=== PATIENT | female | born 1980 | race Caucasian/White ===

== ENCOUNTER 2024-01-07 11:02 | Observation (INO) ==
[2024-01-07 11:16] VITALS: BMI 37.4
[2024-01-07 11:43] LABS: EOSINOPHILS % (AUTO) 0.1 % (0.9-2.9); NEUTROPHILS # (AUTO) 8.8 x10^3/uL (2.2-4.8)
[2024-01-07 11:46] LABS: BASOPHILS # (AUTO) 0.2 X10^3/uL (0.0-0.1); BASOPHILS % (AUTO) 2.2 % (0.2-1.0); LYMPHOCYTES # (AUTO) 0.7 X10^3/uL (1.3-2.9); LYMPHOCYTES % (AUTO) 7.3 % (21.0-51.0); MEAN CORPUSCULAR HEMOGLOBIN 17.2 pg (27.0-34.0); MEAN CORPUSCULAR HGB CONC 28.6 g/dL (33.0-35.0); MEAN PLATELET VOLUME 8.7 fL (7.4-11.0); MONOCYTES # (AUTO) 0.4 x10^3/uL (0.3-0.8); MONOCYTES % (AUTO) 3.8 % (0.0-13.0); NEUTROPHILS % (AUTO) 86.6 % (42.0-75.0); PLATELET COUNT 289 X10^3/uL (150.0-450.0); RED BLOOD COUNT 1.95 X10^6/uL (3.5-5.4); WHITE BLOOD COUNT 10.2 X10^3/uL (3.6-10.0)
--- NOTE | 2024-01-07 11:49 | DR.VAGB ---
HPI Time Seen Time Seen by Provider: 01/07/24 11:48 PCP Primary Care Physician: DR. DEGROOT Complaint Self Treatment fo Chief Complaint: control pills/metformin Source History Provided: Patient Mode of Arrival Mode of Arrival: Wheelchair Timing Onset of Chief Complaint: 12/08/23 PMH PMH Past Medical History: Yes Past Medical History: Hypertension Past Medical History Comment: ovarian cysts Past Surgical History: Yes Surgical History: Past Surgical History Comment: x5 Family History History of Family Medical Conditions: Yes Family Medical History: Diabetes Mellitus Social History Does patient currently use any type of tobacco product: No Have you used tobacco products in the last 12 months: No Type of Tobacco Use: None Does any household member use tobacco: No Alcohol Use: None Do you use any recreational Drugs:: No Lives With: Spouse Lives Where: Home Travel Risk Coronavirus risk:travel/contact w/high risk person: No Has patient experienced Coronavirus symptoms: No Infectious screening Have you traveled outside the country in the last 6 months?: No Isolation: Standard PE Vital Signs Vitals: Vital Signs Temperature 98.0 F Pulse Rate 100 Pulse Rate 100 Respiratory Rate 20 Respiratory Rate 20 Blood Pressure 167/70 O2 Sat by Pulse Oximetry 99 O2 Sat by Pulse Oximetry 113 ROR Labs Reviewed 01/07/24 11:30 01/07/24 11:30 Laboratory: WBC 10.2 X10^3/uL (3.6-10.0) H 01/07/24 11:30 RBC 1.95 X10^6/uL (3.5-5.4) L 01/07/24 11:30 Hgb 3.3 g/dL (12.0-16.0) L* 01/07/24 11:30 Hct 11.7 % (36.0-47.0) L* 01/07/24 11:30 MCV 60.0 fL (80.0-100.0) L 01/07/24 11:30 MCH 17.2 pg (27.0-34.0) L 01/07/24 11:30 MCHC 28.6 g/dL (33.0-35.0) L 01/07/24 11:30 RDW 20.0 % (11.6-16.5) H 01/07/24 11:30 Plt Count 289 X10^3/uL (150.0-450.0) 01/07/24 11:30 Plt Count Comment Adequate (ADEQUATE) 01/07/24 11: MPV 8.7 fL (7.4-11.0) 01/07/24 11:30 Neut % (Auto) 86.6 % (42.0-75.0) H 01/07/24 11:30 Lymph % (Auto) 7.3 % (21.0-51.0) L 01/07/24 11:30 [place] % (Auto) 3.8 % (0.0-13.0) 01/07/24 11:30 Eos % (Auto) 0.1 % (0.9-2.9) L 01/07/24 11:30 Baso % (Auto) 2.2 % (0.2-1.0) H 01/07/24 11:30 Neut # (Auto) 8.8 x10^3/uL (2.2-4.8) H 01/07/24 11:30 Lymph # (Auto) 0.7 X10^3/uL (1.3-2.9) L 01/07/24 11:30 [place] # (Auto) 0.4 x10^3/uL (0.3-0.8) 01/07/24 11:30 Eos # (Auto) 0.0 x10^3/uL (0.0-0.2) 01/07/24 11:30 Baso # (Auto) 0.2 X10^3/uL (0.0-0.1) H 01/07/24 11:30 Absolute Nucleated RBC 0.5 /100WBC 01/07/24 11:30 Plt Morphology Comment Normal (NORMAL) 01/07/24 11:30 RBC Morphology Abnormal (NORMAL) A 01/07/24 11:30 Hypochromasia 3+ A 01/07/24 11:30 Anisocytosis 1+ A 01/07/24 11: Microcytosis 2+ A 01/07/24 11:30 Tear Drop Cells Present 01/07/24 11:30 Absolute Retic 0.1100 10^6/uL 01/07/24 11:30 Percent Retic 6.18 % (0.8-2.2) H 01/07/24 11:30 Sodium 136 mmol/L (136-145) 01/07/24 11:30 Corrected Sodium 137 mmol/L (136-145) 01/07/24 11:30 Potassium 4.2 mmol/L (3.5-5.1) 01/07/24 11:30 Chloride 104 mmol/L (98-107) 01/07/24 11:30 Carbon Dioxide 27.9 mmol/L (21-32) 01/07/24 11:30 BUN 11 mg/dL (7-18) 01/07/24 11:30 Creatinine 0.62 mg/dL (0.55-1.02) 01/07/24 11:30 Est GFR (MDRD) Af Amer > 60 (>60) 01/07/24 11:30 Est GFR (MDRD) Non-Af > 60 (>60) 01/07/24 11:30 Glucose 126 mg/dL (65-99) H 01/07/24 11:30 Calcium 8.1 mg/dL (8.5-10.1) L 01/07/24 11:30 Corrected Calcium 9.1 mg/dL (8.5-10.1) 01/07/24 11:30 Iron 10 ug/dL (50-175) L 01/07/24 11:30 TIBC 559 ug/dL (250-450) H 01/07/24 11:30 Transferrin 414 mg/dL (202-364) H 01/07/24 11:30 Ferritin 1 ng/mL (8-252) L 01/07/24 11:30 Total Bilirubin 0.30 mg/dL (0.2-1.0) 01/07/24 11:30 AST 14 Units/L (15-37) L 01/07/24 11:30 ALT 9 Units/L (12-78) L 01/07/24 11:30 Alkaline Phosphatase 79 Units/L (46-116) 01/07/24 11:30 Total Protein 6.8 g/dL (6.4-8.2) 01/07/24 11:30 Albumin 2.7 g/dL (3.4-5.0) L 01/07/24 11:30 Globulin 4.1 g/dL (2.5-4.5) 01/07/24 11:30 Albumin/Globulin Ratio 0.7 Ratio (1.1-2.1) L 01/07/24 11:30 Vitamin B12 275 pg/mL (193-986) 01/07/24 11:30 Folate 18.3 ng/mL (>8.6) 01/07/24 11:30 HCG, Qual Negative <10 mIU/mL 01/07/24 11:30 Blood Type O POSITIVE 01/07/24 11:36 Antibody Screen Negative 01/07/24 11:36 Crossmatch See Detail 01/07/24 11:36 Opioid Opioid Risk Tool Age (Anselmo box if 16-45): Yes History of Preadolescent Sexual Abuse: No Total: 1 Total Score Risk Category: Low Risk Copyright: Parveen CORRAL predicting aberrant behaviors Discharge Plan Diagnosis Discharge Problem: Anemia Discharge Plan Patient Disposition: 01 HOME, SELF-CARE Condition: Stable Health Concerns: Post Hospitalization: new medications and changes needed to prevent readmission or further decline. Pt educated and given instructions on all concerns. Plan of Treatment: Continue with present treatment and follow up plan. Pt is to keep follow up appointment as instructed and take medications as ordered. Orders to Discharge Patient Discharge Orders: Transfer (Routine); Ordered 01/07/24 Ordered By: CASSANDRA CARTER Follow ups/Referrals Follow ups/Referrals: NFD,None [Primary Care Provider] - 3 days Instructions Stand Alone Forms: Post Hospital Follow Up Care
[2024-01-07 11:50] LABS: HEMATOCRIT 11.7 % (36.0-47.0); HEMOGLOBIN 3.3 g/dL (12.0-16.0)
[2024-01-07 11:56] LABS: ALANINE AMINOTRANSFERASE 9 Units/L (12-78); ALBUMIN 2.7 g/dL (3.4-5.0); ALKALINE PHOSPHATASE 79 Units/L (46-116); ASPARTATE AMINO TRANSFERASE 14 Units/L (15-37); BLOOD UREA NITROGEN 11 mg/dL (7-18); CALCIUM 8.1 mg/dL (8.5-10.1); CARBON DIOXIDE 27.9 mmol/L (21-32); CHLORIDE 104 mmol/L (98-107); COR CA(FOR HYPOALB) 9.1 mg/dL (8.5-10.1); COR NA(FOR HYPERGLY) 137 mmol/L (136-145); CREATININE 0.62 mg/dL (0.55-1.02); GLUCOSE 126 mg/dL (65-99); POTASSIUM 4.2 mmol/L (3.5-5.1); SODIUM 136 mmol/L (136-145); TOTAL PROTEIN 6.8 g/dL (6.4-8.2); eGFR NON BLACK RACES > 60 (>60)
[2024-01-07 12:09] LABS: ANISOCYTOSIS 1+; HYPOCHROMASIA 3+; MICROCYTOSIS 2+; PLATELET MORPHOLOGY COMMENT NORMAL (NORMAL)
[2024-01-07 12:10] LABS: TEAR DROP CELLS PRESENT
[2024-01-07 13:43] LABS: RETICULOCYTE % 6.18 % (0.8-2.2)
[2024-01-07 13:46] LABS: SERUM PREGNANCY TEST, QUAL NEGATIVE <10 mIU/mL
[2024-01-07] MEDS: NS 250 ML IV 250 ML IV ONE (18:16)
[2024-01-07] MEDS: NS 1,000 ML IV 1,000 ML IV SCH (21:47)
[2024-01-07 22:19] LABS: BILIRUBIN,URINE NEGATIVE (NEGATIVE); BLOOD/HEMOGLOBIN,URINE 5+ (NEGATIVE); GLUCOSE, URINE NEGATIVE (NEGATIVE); KETONES,URINE NEGATIVE (NEGATIVE); LEUKOCYTE ESTERASE ,URINE 3+ (NEGATIVE); NITRITES,URINE POSITIVE (NEGATIVE); PROTEIN,URINE 3+ (NEGATIVE); UROBILINOGEN,URINE NORMAL (NORMAL)
[2024-01-07 22:30] LABS: HEMOGLOBIN 5.1 g/dL (12.0-16.0)
[2024-01-07 22:31] LABS: HEMATOCRIT 16.2 % (36.0-47.0)
[2024-01-07 22:37] LABS: APPEARANCE,URINE CLOUDY (CLEAR); BACTERIA,URINE 1+ /HPF (NEGATIVE); COLOR,URINE AMBER (YELLOW); RBC,URINE TNTC /HPF (0-3); SQUAMOUS EPITHELIAL CELL,UR RARE /HPF (NEGATIVE)
[2024-01-08 04:22] LABS: HEMATOCRIT 18.4 % (36.0-47.0); HEMOGLOBIN 5.8 g/dL (12.0-16.0)
[2024-01-08 09:01] LABS: WHITE BLOOD COUNT 6.1 X10^3/uL (3.6-10.0)
[2024-01-08 09:04] LABS: BASOPHILS # (AUTO) 0.1 X10^3/uL (0.0-0.1); BASOPHILS % (AUTO) 1.6 % (0.2-1.0); EOSINOPHILS % (AUTO) 0.7 % (0.9-2.9); LYMPHOCYTES # (AUTO) 0.8 X10^3/uL (1.3-2.9); LYMPHOCYTES % (AUTO) 12.8 % (21.0-51.0); MEAN CORPUSCULAR HEMOGLOBIN 24.2 pg (27.0-34.0); MEAN CORPUSCULAR HGB CONC 31.9 g/dL (33.0-35.0); MEAN CORPUSCULAR VOLUME 75.9 fL (80.0-100.0); MEAN PLATELET VOLUME 8.6 fL (7.4-11.0); MONOCYTES # (AUTO) 0.4 x10^3/uL (0.3-0.8); MONOCYTES % (AUTO) 6.7 % (0.0-13.0); NEUTROPHILS # (AUTO) 4.8 x10^3/uL (2.2-4.8); NEUTROPHILS % (AUTO) 78.2 % (42.0-75.0); PLATELET COUNT 177 X10^3/uL (150.0-450.0); RED CELL DISTRIBUTION WIDTH 27.9 % (11.6-16.5)
[2024-01-08 09:10] LABS: ALANINE AMINOTRANSFERASE 8 Units/L (12-78); ALBUMIN 2.4 g/dL (3.4-5.0); ALKALINE PHOSPHATASE 70 Units/L (46-116); ASPARTATE AMINO TRANSFERASE 14 Units/L (15-37); BLOOD UREA NITROGEN 9 mg/dL (7-18); CALCIUM 7.6 mg/dL (8.5-10.1); CARBON DIOXIDE 28.3 mmol/L (21-32); CHLORIDE 103 mmol/L (98-107); COR CA(FOR HYPOALB) 8.9 mg/dL (8.5-10.1); COR NA(FOR HYPERGLY) 138 mmol/L (136-145); CREATININE 0.67 mg/dL (0.55-1.02); GLUCOSE 125 mg/dL (65-99); POTASSIUM 3.4 mmol/L (3.5-5.1); SODIUM 137 mmol/L (136-145); TOTAL PROTEIN 6.1 g/dL (6.4-8.2); eGFR NON BLACK RACES > 60 (>60)
[2024-01-08 09:32] LABS: PLATELET MORPHOLOGY COMMENT NORMAL (NORMAL)
[2024-01-08 09:33] LABS: ANISOCYTOSIS 3+; HYPOCHROMASIA SLIGHT; MICROCYTOSIS SLIGHT
[2024-01-08] MEDS: VITAMIN B-12 INJ IM ONE (12:14)
[2024-01-08 14:02] LABS: HEMATOCRIT 21.7 % (36.0-47.0); HEMOGLOBIN 7.1 g/dL (12.0-16.0)
[2024-01-08] MEDS: PROVERA PO SCH (14:10)
[2024-01-08] MEDS: NS IV NR (16:24)
[2024-01-08] MEDS: INJECTAFER IV NR (16:24)
--- NOTE | 2024-01-08 16:28 | DR.H&P ---
H&P History & Physical for Day of: H&P Date: 01/08/24 Chief Complaint Chief Complaint: Heavier than normal menstrual cycle with feeling weak and lightheaded. History of Present Illness History of Present Illness: This is a pleasant 43-year-old white female who presented to [facility] department after feeling weak and lightheaded and having a very heavy menstrual cycle recently that is for heavier than normal she states. She has had this before about 10 years ago and had to receive blood transfusions. Workup in the emergency department revealed that she had a hemoglobin of 3.3 therefore we decided to go ahead and admit her and transfused 4 units of packed red blood cells. After the fourth pack of red blood cells transfusion her hemoglobin has come up to 7.1. Throughout the day her menses has gotten heavier so we put in a consultation with [employer], Dr. Bills who has given some orders and plans on seeing the patient later on today or tomorrow. The patient requested to see Dr. Bills and wants to use her as her [employer] in the future. Past Medical History Past Medical History: Hypertension Additional Medical History: TTP Past Surgical History Surgical History: Family History Family Medical History: Hypertension Social History Does patient currently use any type of tobacco product: No Have you used tobacco products in the last 12 months: No Type of Tobacco Use: None Does any household member use tobacco: No Alcohol Use: None Drug Use: None Medications Home Medications: Home Medications Medication Instructions Recorded Confirmed Type metformin 500 mg tablet 500 mg PO DAILY 01/07/24 01/07/24 History norgestimate 0.25 mg-ethinyl 1 tab PO DAILY 01/07/24 01/07/24 History estradiol 35 mcg tablet (Sprintec (28)) Allergies Allergies Allergy/AdvReac Type Severity Reaction Status Date / Time codeine AdvReac Verified 01/07/24 11:17 Labs 01/08/24 13:49 01/08/24 08:30 Labs: 01/07/24 22:10 Urine,Clean Catch Urine Culture - Preliminary Laboratory WBC 6.1 X10^3/uL (3.6-10.0) 01/08/24 08:30 RBC 2.90 X10^6/uL (3.5-5.4) L 01/08/24 08:30 Hgb 7.1 g/dL (12.0-16.0) L 01/08/24 13:49 Hct 21.7 % (36.0-47.0) L 01/08/24 13:49 MCV 75.9 fL (80.0-100.0) L 01/08/24 08:30 MCH 24.2 pg (27.0-34.0) L 01/08/24 08:30 MCHC 31.9 g/dL (33.0-35.0) L 01/08/24 08:30 RDW 27.9 % (11.6-16.5) H 01/08/24 08:30 Plt Count 177 X10^3/uL (150.0-450.0) 01/08/24 08:30 Plt Count Comment Adequate (ADEQUATE) 01/08/24 08:30 MPV 8.6 fL (7.4-11.0) 01/08/24 08:30 Neut % (Auto) 78.2 % (42.0-75.0) H 01/08/24 08:30 Lymph % (Auto) 12.8 % (21.0-51.0) L 01/08/24 08:30 [place] % (Auto) 6.7 % (0.0-13.0) 01/08/24 08:30 Eos % (Auto) 0.7 % (0.9-2.9) L 01/08/24 08:30 Baso % (Auto) 1.6 % (0.2-1.0) H 01/08/24 08:30 Neut # (Auto) 4.8 x10^3/uL (2.2-4.8) 01/08/24 08:30 Lymph # (Auto) 0.8 X10^3/uL (1.3-2.9) L 01/08/24 08:30 Angelina # (Auto) 0.4 x10^3/uL (0.3-0.8) 01/08/24 08:30 Eos # (Auto) 0.0 x10^3/uL (0.0-0.2) 01/08/24 08:30 Baso # (Auto) 0.1 X10^3/uL (0.0-0.1) 01/08/24 08:30 Absolute Nucleated RBC 0.6 /100WBC 01/08/24 08:30 Plt Morphology Comment Normal (NORMAL) 01/08/24 08:30 RBC Morphology Abnormal (NORMAL) A 01/08/24 08:30 Hypochromasia Slight A 01/08/24 08:30 Anisocytosis 3+ A 01/08/24 08:30 Microcytosis Slight A 01/08/24 08:30 Tear Drop Cells Present 01/07/24 11:30 Absolute Retic 0.1100 10^6/uL 01/07/24 11:30 Percent Retic 6.18 % (0.8-2.2) H 01/07/24 11:30 Sodium 137 mmol/L (136-145) 01/08/24 08:30 Corrected Sodium 138 mmol/L (136-145) 01/08/24 08:30 Potassium 3.4 mmol/L (3.5-5.1) L 01/08/24 08:30 Chloride 103 mmol/L (98-107) 01/08/24 08:30 Carbon Dioxide 28.3 mmol/L (21-32) 01/08/24 08:30 BUN 9 mg/dL (7-18) 01/08/24 08:30 Creatinine 0.67 mg/dL (0.55-1.02) 01/08/24 08:30 Est GFR (MDRD) Af Amer > 60 (>60) 01/08/24 08:30 Est GFR (MDRD) Non-Af > 60 (>60) 01/08/24 08:30 Glucose 125 mg/dL (65-99) H 01/08/24 08:30 Calcium 7.6 mg/dL (8.5-10.1) L 01/08/24 08:30 Corrected Calcium 8.9 mg/dL (8.5-10.1) 01/08/24 08:30 Magnesium 1.9 mg/dL (2.0-2.9) L 01/08/24 08:30 Iron 10 ug/dL (50-175) L 01/07/24 11:30 TIBC 559 ug/dL (250-450) H 01/07/24 11:30 Transferrin 414 mg/dL (202-364) H 01/07/24 11:30 Ferritin 1 ng/mL (8-252) L 01/07/24 11:30 Total Bilirubin 0.60 mg/dL (0.2-1.0) 01/08/24 08:30 AST 14 Units/L (15-37) L 01/08/24 08:30 ALT 8 Units/L (12-78) L 01/08/24 08:30 Alkaline Phosphatase 70 Units/L (46-116) 01/08/24 08:30 Total Protein 6.1 g/dL (6.4-8.2) L 01/08/24 08:30 Albumin 2.4 g/dL (3.4-5.0) L 01/08/24 08:30 Globulin 3.7 g/dL (2.5-4.5) 01/08/24 08:30 Albumin/Globulin Ratio 0.6 Ratio (1.1-2.1) L 01/08/24 08:30 Vitamin B12 275 pg/mL (193-986) 01/07/24 11:30 Folate 18.3 ng/mL (>8.6) 01/07/24 11:30 HCG, Qual Negative <10 mIU/mL 01/07/24 11:30 Specimen Type Clean catch urine 01/07/24 22:10 Urine Color Kathi (YELLOW) 01/07/24 22:10 Urine Appearance Cloudy (CLEAR) 01/07/24 22:10 Urine pH 6.0 (5.0 - 8.0) 01/07/24 22:10 Ur Specific [place] 1.025 (1.000-1.030) 01/07/24 22:10 Urine Protein 3+ (NEGATIVE) 01/07/24 22:10 Urine Glucose (UA) Negative (NEGATIVE) 01/07/24 22:10 Urine Ketones Negative (NEGATIVE) 01/07/24 22:10 Urine Blood 5+ (NEGATIVE) 01/07/24 22:10 Urine Nitrite Positive (NEGATIVE) 01/07/24 22:10 Urine Bilirubin Negative (NEGATIVE) 01/07/24 22:10 Urine Urobilinogen Normal (NORMAL) 01/07/24 22:10 Ur Leukocyte Esterase 3+ (NEGATIVE) 01/07/24 22:10 Urine RBC Tntc /HPF (0-3) A 01/07/24 22:10 Urine WBC Tntc /HPF (0-5) A 01/07/24 22:10 Ur Squamous Epith Cells Rare /HPF (NEGATIVE) 01/07/24 22:10 Amorphous Sediment 1+ /HPF (NEGATIVE) 01/07/24 22:10 Urine Bacteria 1+ /HPF (NEGATIVE) 01/07/24 22:10 Urine Mucus Few /HPF (NEGATIVE) 01/07/24 22:10 Ur Culture Indicated? Yes/culture set up 01/07/24 22:10 Blood Type O POSITIVE 01/07/24 11:36 Antibody Screen Negative 01/07/24 11:36 Crossmatch See Detail 01/07/24 11:36 Review of Systems Constitutional: Weakness and Malaise Eyes: No Symptoms Reported ENT: No Symptoms Reported Respiratory: Shortness of Breath and SOB with Excertion; denies Cough, Hemoptysis, Pleuritic Pain or Sputum Cardiovascular: No Symptoms Reported Gastrointestinal: No Symptoms Reported Genitourinary: Retention; denies Frequency Musculoskeletal: No Symptoms Reported Skin: No Symptoms Reported Neurological: No Symptoms Reported Physical Exam Vital Signs: Vital Signs Temperature 97.6 F Temperature 97.3 F Pulse Rate [Radial] 83 Pulse Rate [Radial] 77 Respiratory Rate 19 Respiratory Rate 18 Blood Pressure [Right Arm] 127/58 Blood Pressure [Right Arm] 143/63 O2 Sat by Pulse Oximetry 100 O2 Sat by Pulse Oximetry 100 Oriented: Normal, Time, Person and Place Eyes: Normal Ear: Normal Nose: Normal Throat: Normal Respiratory: Clear Throughout Cardiovascular: Normal : Bleeding; negative Discharge Auscultation: Bowel Sounds: Normal Palpation: Normal Tenderness: Normal Skin: Normal Musculoskeletal: Normal Psychiatric: Normal Mood Description: Calm Affect: Normal Speech Pattern: Clear and Appropriate Assessment/Plan (1) Anemia: Status: Acute Plan: Continue to monitor hemoglobin. Check an H&H mid afternoon today. Patient is status posttransfusion of 4 units packed red blood cells. (2) Menorrhagia: Status: Acute Plan: Consult [employer], Dr. Bills for further evaluation and treatment at patient's request. Review H&P Reviewed: Yes Patient was examined?: Yes
[2024-01-08] MEDS ORDERED: KLOR-CON PO SCH (21:00)
[2024-01-09] MEDS: PROVERA PO SCH (06:04)
[2024-01-09] MEDS: FERROUS GLUCONATE PO SCH (06:04)
[2024-01-09 06:17] LABS: BASOPHILS # (AUTO) 0.1 X10^3/uL (0.0-0.1); BASOPHILS % (AUTO) 1.6 % (0.2-1.0); EOSINOPHILS % (AUTO) 0.6 % (0.9-2.9); LYMPHOCYTES # (AUTO) 0.9 X10^3/uL (1.3-2.9); LYMPHOCYTES % (AUTO) 18.3 % (21.0-51.0); MEAN CORPUSCULAR HEMOGLOBIN 24.6 pg (27.0-34.0); MEAN CORPUSCULAR HGB CONC 32.2 g/dL (33.0-35.0); MEAN CORPUSCULAR VOLUME 76.4 fL (80.0-100.0); MEAN PLATELET VOLUME 7.7 fL (7.4-11.0); MONOCYTES # (AUTO) 0.4 x10^3/uL (0.3-0.8); MONOCYTES % (AUTO) 7.8 % (0.0-13.0); NEUTROPHILS # (AUTO) 3.6 x10^3/uL (2.2-4.8); NEUTROPHILS % (AUTO) 71.7 % (42.0-75.0); PLATELET COUNT 162 X10^3/uL (150.0-450.0); RED BLOOD COUNT 2.62 X10^6/uL (3.5-5.4); RED CELL DISTRIBUTION WIDTH 28.5 % (11.6-16.5)
[2024-01-09 06:20] LABS: ALANINE AMINOTRANSFERASE 7 Units/L (12-78); ALBUMIN 2.3 g/dL (3.4-5.0); ALKALINE PHOSPHATASE 68 Units/L (46-116); ASPARTATE AMINO TRANSFERASE 14 Units/L (15-37); BLOOD UREA NITROGEN 5 mg/dL (7-18); CALCIUM 7.6 mg/dL (8.5-10.1); CARBON DIOXIDE 24.4 mmol/L (21-32); CHLORIDE 106 mmol/L (98-107); CREATININE 0.48 mg/dL (0.55-1.02); GLUCOSE 95 mg/dL (65-99); POTASSIUM 3.3 mmol/L (3.5-5.1); SODIUM 138 mmol/L (136-145); eGFR NON BLACK RACES > 60 (>60)
[2024-01-09 06:24] LABS: HEMOGLOBIN 6.5 g/dL (12.0-16.0)
[2024-01-09] MEDS ORDERED: CONSULT PHARMACY - POTASSIUM & MAGNESIUM XX SCH (07:00)
[2024-01-09 07:09] LABS: ANISOCYTOSIS 3+; MICROCYTOSIS SLIGHT; PLATELET MORPHOLOGY COMMENT NORMAL (NORMAL)
[2024-01-09] MEDS: NS 250 ML IV 250 ML IV ONE ×3 (07:35→07:37)
[2024-01-09] MEDS: VITAMIN B-12 INJ IM ONE (09:39)
[2024-01-09] MEDS: MAG-OX TAB PO SCH (09:59)
[2024-01-09] MEDS: K-DUR TAB 20 MEQ PO SCH (09:59)
[2024-01-09] MEDS ORDERED: NS 250 ML IV 250 ML IV ONE (14:05)
[2024-01-09 17:22] VITALS: BP 159/63; PULSE 75; RESP 18; TEMP 98.3; O2SAT 100
[2024-01-09 18:51] LABS: HEMATOCRIT 32.2 % (36.0-47.0); HEMOGLOBIN 10.7 g/dL (12.0-16.0)
--- NOTE | 2024-01-10 10:26 | US ---
EXAM:PELVIC (NON OB)HISTORY:vaginal bleeding; ANEMIA, VAG BLEEDING. Last menstrual cycle 12/26/2023OMPARISON:NoneTECHNIQUE:23 images made by the concreting supervisor. Salgado scale and color flow images of the pelvis were obtained.FINDINGS:Transabdominal: Bladder is moderately distended with a thin wall. This makes for an optimal acoustic window.The uterus is anteverted in position. It measures about 13 cm long and 5 cm in diameter.Small notch present in the inferior wall lower uterine segment may be a section scar if the patient has that history. Otherwise uterine contour is smooth. Myometrium is uniform but has no mass or nodule to suggest fibroid.Endometrium is uniformly echogenic and measures 9 mm in thickness.The technologist was not able to find right or left ovary. No adnexal mass was identified. No free fluid.IMPRESSION:1. No significant abnormalityTHIS IS AN ELECTRONICALLY VERIFIED FINAL [id number]/10/2024 10:23 AM - Electronically signed by Justin Morley MD
== END 2024-01-09 19:35 | disposition home or self-care (01) ==
LOC: ER 11:02 → INTOOBSV 14:26 → MED/SURG 14:26
PROVIDERS: ADMIT Family Medicine; ATTEND Family Medicine
DX: Z16.11 Resistance to penicillins; E11.65 Type 2 diabetes mellitus with hyperglycemia; I10 Essential (primary) hypertension; E83.42 Hypomagnesemia; N92.0 Excessive and frequent menstruation with regular cycle; R06.02 Shortness of breath; N39.0 Urinary tract infection, site not specified; D50.8 Other iron deficiency anemias; Z16.29 Resistance to other single specified antibiotic; B96.29 Other Escherichia coli [E. coli] as the cause of diseases classified elsewhere